=== PATIENT | female | born 1985 | race Two or more races ===

== ENCOUNTER → 2024-04-07 13:24 | Outpatient (CLI) | payer OTHER | END | disposition home or self-care (01) | LOC: PRENATAL 13:24 | PROVIDERS: ATTEND Obstetrics & Gynecology Maternal & Fetal Medicine | DX: O35.3XX0 Maternal care for (suspected) damage to fetus from viral disease in mother, not applicable or unspecified (principal); O44.00 Complete placenta previa NOS or without hemorrhage, unspecified trimester; O09.529 Supervision of elderly multigravida, unspecified trimester; O28.3 Abnormal ultrasonic finding on antenatal screening of mother; Z3A.19 19 weeks gestation of pregnancy ==

== ENCOUNTER 2024-06-09 09:08 | Outpatient (CLI) | payer OTHER | END 2024-06-09 09:09 | disposition home or self-care (01) | LOC: PRENATAL 09:08 | PROVIDERS: ATTEND Obstetrics & Gynecology Maternal & Fetal Medicine | DX: O26.849 Uterine size-date discrepancy, unspecified trimester (principal); O36.8199 Decreased fetal movements, unspecified trimester, other fetus; O09.529 Supervision of elderly multigravida, unspecified trimester; O28.3 Abnormal ultrasonic finding on antenatal screening of mother; Z3A.28 28 weeks gestation of pregnancy ==

== ENCOUNTER 2024-07-29 11:31 | Outpatient (CLI) | payer OTHER | END 2024-07-29 13:03 | disposition home or self-care (01) | LOC: NST 11:31 | PROVIDERS: ATTEND General Practice | DX: Z34.83 Encounter for supervision of other normal pregnancy, third trimester (principal) ==

== ENCOUNTER 2024-08-25 02:59 | Inpatient (IN) | payer OTHER ==
[2024-08-25] VITALS (11 sets, daily range): BP systolic 98–124; BP diastolic 51–80
[~2024-08-25] VITALS: Ht 165.1 cm; Wt 68.0 kg
[2024-08-25] MEDS ORDERED: PRENATAL + DHA1 EAC1 PO (03:02)
[2024-08-25] MEDS ORDERED: PRILOSEC OTC20 MG PO (03:03)
[2024-08-25] MEDS ORDERED: RINGERS SOLUTION,LACTATED 1,000 ML IV SCH (03:15)
[2024-08-25] MEDS ORDERED: LIDOCAINE HCL 1% 10ML VIAL ONE (04:08)
[2024-08-25] MEDS ORDERED: ERYTHROMYCIN BASE OPHT 1GM EACH TUBE OP ONE ×2 (04:08→06:45)
[2024-08-25] MEDS ORDERED: OXYTOCIN 20 UNITS/1000ML RL PIGGYBAG IV ONE (04:08)
[2024-08-25] MEDS ORDERED: CHLORHEXIDINE GLUCONATE 120 ML BOTTLE TOP ONE (04:08)
[2024-08-25 04:23] LABS: PH,URINE 6.5; URINE BILIRRUBIN NEGATIVE (NEGATIVE); URINE BLOOD TRACE; URINE GLUCOSE NEGATIVE (NEGATIVE); URINE KETONE NEGATIVE (NEGATIVE); URINE LEUKOCYTE TRACE; URINE NITRATE NEGATIVE; URINE PROTEIN NEGATIVE (NEGATIVE); URINE UROBILINOGEN 0.2 E.U./dl
[2024-08-25 04:30] LABS: HEMATOCRIT 34.4 % (36.0-45.00); MEAN CELL VOLUME 87.3 fL (80.00-100.00); MEAN CORPUSCULAR HEMOGLOBIN 29.6 pg (27.00-32.0); MEAN CORPUSCULAR HGB CONC 33.9 g/dl (32.0-36.0); PLATELET COUNT 188 K/uL (150-450); RED BLOOD COUNT 3.95 M/uL (4.00-6.00); RED CELL DISTRIBUTION WIDTH 14.1 % (11.5-14.5)
[2024-08-25 04:47] LABS: URINE APPEARANCE CLEAR; URINE BACTERIA FEW; URINE COLOR YELLOW
[2024-08-25 04:48] LABS: URINE MUCUS NEGATIVE
[2024-08-25 05:00] LABS: INR < 0.93; PARTIAL THROMBOPLASTIN TIME 27.6 SECONDS (22.0-34.0)
[2024-08-25 05:01] LABS: HEMOGLOBIN 11.7 g/dL (12.0-15.00)
[2024-08-25 05:18] LABS: ALBUMIN 2.7 gm/dL (3.4-5.0); BILIRUBIN TOTAL 0.83 mg/dL (0.3-1.2); CALCIUM 8.5 mg/dL (8.5-10.1); CREATININE SERUM 0.64 mg/dL (0.55-1.02); GFR 103.31; GLOBULINA 3.3 G/DL (2.4-3.5); POTASSIUM 3.82 mEq/L (3.5-5.1)
[2024-08-25] MEDS ORDERED: OXYTOCIN 1,000 ML IV SCH (06:00)
[2024-08-25] MEDS ORDERED: CHLORHEXIDINE GLUCONATE 120 ML BOTTLE TOP SCH (06:00)
[2024-08-25] MEDS ORDERED: BENZOCAINE/MENTHOL 90 ML BOTTLE TOP SCH (06:00)
[2024-08-25] MEDS ORDERED: LIDOCAINE HCL 1% 10ML VIAL IJ ONE (06:45)
[2024-08-25] MEDS ORDERED: IBUprofen 800 MG TABLET PO PRN (09:00)
[2024-08-25] MEDS ORDERED: DOCUSATE SODIUM 100MG CAP PO SCH (09:00)
[2024-08-25 18:18] LABS: HEMATOCRIT 27.5 % (36.0-45.00); HEMOGLOBIN 9.6 g/dL (12.0-15.00); MEAN CELL VOLUME 87.4 fL (80.00-100.00); MEAN CORPUSCULAR HEMOGLOBIN 30.5 pg (27.00-32.0); MEAN CORPUSCULAR HGB CONC 34.9 g/dl (32.0-36.0); PLATELET COUNT 153 K/uL (150-450); RED BLOOD COUNT 3.14 M/uL (4.00-6.00); RED CELL DISTRIBUTION WIDTH 13.7 % (11.5-14.5)
[2024-08-26] VITALS: BP 100/65
[2024-08-26 08:22] VITALS: BP 112/75
[2024-08-26 15:46] VITALS: BP 99/65
[2024-08-27 00:52] VITALS: BP 112/74
[2024-08-27 08:25] VITALS: BP 131/86
[2024-08-27 10:09] LABS: HEMATOCRIT 30.6 % (36.0-45.00); HEMOGLOBIN 10.3 g/dL (12.0-15.00); MEAN CELL VOLUME 89.2 fL (80.00-100.00); MEAN CORPUSCULAR HEMOGLOBIN 30.1 pg (27.00-32.0); MEAN CORPUSCULAR HGB CONC 33.7 g/dl (32.0-36.0); PLATELET COUNT 155 K/uL (150-450); RED BLOOD COUNT 3.43 M/uL (4.00-6.00); RED CELL DISTRIBUTION WIDTH 14.1 % (11.5-14.5)
== END 2024-08-27 15:38 | disposition home or self-care (01) | DRG 807 ==
LOC: LDR 02:59 → OB/GYN 02:59
PROVIDERS: Obstetrics & Gynecology; ADMIT General Practice; ATTEND General Practice
PROC: 10E0XZZ Delivery of Products of Conception, External Approach (ICD-10-PCS; principal; 2024-08-25)
PROC: 4A1HXCZ Monitoring of Products of Conception, Cardiac Rate, External Approach (ICD-10-PCS; 2024-08-25)
DX: O80 Encounter for full-term uncomplicated delivery (principal); Z37.0 Single live birth; Z3A.39 39 weeks gestation of pregnancy